=== PATIENT | female | born 1940 | race Caucasian/White ===

== ENCOUNTER 2018-08-05 13:42 | Outpatient (CLI) | payer MEDICARE, BC ==
--- NOTE | 2018-08-06 01:00 | Consultation ---
DATE OF CONSULTATION: 08/05/2018 GASTROENTEROLOGY CONSULTATION CONSULTING PHYSICIAN: Jose Yu M.D. REFERRING PHYSICIAN: Koko Pineda M.D. CHIEF COMPLAINT: Abdominal pain, bloating, and history of IBD/IBS. HISTORY OF PRESENT ILLNESS: This is a 77-year-old female with diagnosis of lung cancer, currently on oral chemotherapy. Apparently, when she takes the chemotherapy, for one day she has severe diarrhea for which she takes [id number] antidiarrheal medication. Then she will have a cycle of severe constipation for which she takes stool softeners. Apparently, she has a diagnosis of IBD for which she was on Apriso, but about a year ago, she has been off of those medications because of her chemotherapy. Apparently, she has no symptoms of flare-up of IBD. She had a CT scan done at [facility], which showed colonic wall thickening and concerning. So, the patient was referred to us for colonoscopy. PAST MEDICAL HISTORY: 1. IBS/IBD. 2. Lung cancer. 3. Thyroid disease. PAST SURGICAL HISTORY: See above. MEDICATIONS: She is on Tagrisso and thyroid medication. ALLERGIES: Sulfa. FAMILY HISTORY: Father had liver disease. SOCIAL HISTORY: The patient denies any alcohol usage. She used to be a smoker. Denies any drug use. REVIEW OF SYSTEMS: A 10-point review of systems was performed and pertinent positive in HPI. PHYSICAL EXAMINATION: VITAL SIGNS: Temperature 97.6, blood pressure is 119/75, pulse 86, and respirations 20. HEENT: Normocephalic and atraumatic. Sclerae anicteric. NECK: Supple. No evidence of lymphadenopathy. CARDIOVASCULAR: Regular rate and rhythm. Plus S1 and S2. No obvious murmur. LUNGS: Clear to auscultation bilaterally. ABDOMEN: Soft. Bowel sounds are present. Abdomen is mildly distended. Mildly tympanic to percussion. No rebound. No guarding. No peritoneal sign. EXTREMITIES: No cyanosis, no clubbing, no edema. ASSESSMENT AND PLAN: A very pleasant 77-year-old female with numerous medical problems as dictated above. Currently, on oral chemotherapy for lung cancer. History of IBD. Had a colonic wall thickening on the CT and stool OB positive at another facility. The patient was referred to us for colonoscopy. The patient agreed to colonoscopy. The patient was given a sample for cleansing prep and she was scheduled for next week to have a colonoscopy. She was also given a sample of VSL #3 probiotics and a prescription for this. I want to thank, Dr. Caceres, for this kind referral. Jose Heber Yu DR: APOLINAR JOB#: [id number] CC: Koko Pineda M.D. MTDGeorge
== END 2018-08-05 15:51 | disposition home or self-care (01) ==
LOC: PAN 13:42
DX: R10.9 Unspecified abdominal pain (principal); R14.0 Abdominal distension (gaseous); E07.9 Disorder of thyroid, unspecified; Z85.118 Personal history of other malignant neoplasm of bronchus and lung; Z88.2 Allergy status to sulfonamides
CPT/HCPCS: 99202

== ENCOUNTER 2018-08-09 10:27 | Day surgery (SDC) | payer MEDICARE, BC ==
[~2018-08-09] VITALS: Ht 161.3 cm; Wt 54.4 kg
[2018-08-09] VITALS (14 sets, daily range): BP systolic 119–170; BP diastolic 61–92
--- NOTE | 2018-08-09 11:24 | Short Stay Surgery H&P ---
History of Present Illness History of Present Illness Chief Complaint see recent office note HPI Brenda Loya is a 77 year old female who was admitted on for Colitis Patient History Allergies: Coded Allergies: ACETAMINOPHEN (Verified Allergy, Severe, rash; hallucination, 08/09/18) SCOPOLAMINE (Verified Allergy, Severe, rash; hallucination, 08/09/18) SULFA (SULFONAMIDE ANTIBIOTICS) (Verified Allergy, Severe, rash ; hallicination, 08/09/18) CODEINE (Verified Adverse Reaction, Intermediate, vomiting, 08/09/18) Plan Attestation Are the patient's medical conditions optimized for surgery? Jose Yu MD Aug 09, 2018 11:24
--- NOTE | 2018-08-09 11:25 | Pre-Procedure Note/Attestation ---
Pre-Procedure Note/Attestation Complete Prior to Procedure Planned Procedure: not applicable Procedure Narrative: esophagogastroduodenoscopy and colonoscopy Indications for Procedure Pre-Operative Diagnosis: colitis, anemia Attestation I attest that I discussed the nature of the procedure; its benefits; risks and complications; and alternatives (and the risks and benefits of such alternatives ), prior to the procedure, with the patient (or the patient's legal food service sales representatives). I attest that, if there was a reasonable possibility of needing a blood transfusion, the patient (or the patient's legal food service sales representatives) was given the [facility] standardized written summary, pursuant to the [place] Blood Safety Act ([place] Health and Safety Code # 1645, as amended). I attest that I re-evaluated the patient just prior to the surgery and that there has been no change in the patient's H&P, except as documented below: Jose Yu MD Aug 09, 2018 11:25
[2018-08-09] MEDS ORDERED: Propofol 200mg/20ml IV ONE (11:30)
[2018-08-09] MEDS ORDERED: LR 1000ml ONE (11:30)
[2018-08-09] MEDS ORDERED: fentaNYL 100 mcg/2 mL IV ONE (11:30)
[2018-08-09] MEDS ORDERED: TAGRISSO40 MG PO (11:31)
[2018-08-09] MEDS ORDERED: SYNTHROID112 MCG ORAL (11:32)
[2018-08-09] MEDS ORDERED: COMBIGAN EYE DRO5 ML OP (11:33)
[2018-08-09] MEDS ORDERED: LUMIGAN2.5 ML BOTH EYES (11:34)
[2018-08-09] MEDS ORDERED: PROLIA60 MG/1 ML SUBQ (11:35)
[2018-08-09] MEDS ORDERED: TRAMADOL HCL50 MG ORAL (11:37)
[2018-08-09] MEDS ORDERED: MULTIVITAMINS1 EAC2 ORAL (11:38)
[2018-08-09] MEDS ORDERED: CALCIUM + VITA1 EAC1 PO (11:39)
[2018-08-09] MEDS ORDERED: TURMERIC 500 M1 EAC1 PO (11:41)
[2018-08-09] MEDS ORDERED: LR 1000ml 1,000 ML IVLG SCH (12:25)
--- NOTE | 2018-08-09 12:25 | Anethesia Preoperative Eval ---
Anesthesia Pre-op PMH/ROS General Date of Evaluation: Aug 09, 2018 Time of Evaluation: 11:55 Anesthesiologist: Trista ASA Score: ASA 3 Mallampati Score Class I : Soft palate, uvula, fauces, pillars visible Class II: Soft palate, uvula, fauces visible Class III: Soft palate, base of uvula visible Class IV: Only hard plate visible Mallampati Classification: Class II Surgeon: Aimee Diagnosis: Abdominal pain Surgical Procedure: Colonoscopy Anesthesia History: none Social History: smoking - h/o Family History: no anesthesia problems Allergies: Coded Allergies: ACETAMINOPHEN (Verified Allergy, Severe, rash; hallucination, 08/09/18) SCOPOLAMINE (Verified Allergy, Severe, rash; hallucination, 08/09/18) SULFA (SULFONAMIDE ANTIBIOTICS) (Verified Allergy, Severe, rash ; hallicination, 08/09/18) CODEINE (Verified Adverse Reaction, Intermediate, vomiting, 08/09/18) Medications: see eMAR Patient NPO?: Yes Past Medical History Cardiovascular: Reports: HTN - mild; Denies: CAD, [place], valve dz, arrhythmia, other Pulmonary: Reports: other - lung CA s/pR lobectomy; Denies: asthma, COPD, KRISTIN Gastrointestinal/Genitourinary: Reports: GERD, other - chroni abdominal pain Neurologic/Psychiatric: Reports: depression/anxiety; Denies: dementia, CVA, TIA, other Endocrine: Reports: hypothyroidism; Denies: DM, steroids, other HEENT: Denies: cataract (L), cataract (R), glaucoma, [place] (L), [place] (R), other Hematology/Immune: Reports: anemia; Denies: DVT, bleeding disorder, other Musculoskeletal/Integumentary: Reports: OA; Denies: RA, DJD, DDD, edema, other Other: other - malnourished PMH Narrative: as above PSxH Narrative: R lobectomy Anesthesia Pre-op Phys. Exam Physician Exam Last Vital Signs Date Time Temp Pulse Resp B/P (MAP) Pulse Ox O2 Delivery O2 Flow Rate FiO2 08/09/18 11:42 Room Air 08/09/18 11:28 97.1 59 20 119/73 99 Constitutional: NAD Neurologic: CN 2-12 intact Cardiovascular: RRR, no M/R/G Respiratory: CTA Gastrointestinal: S/NT/ND Airway Exam Mallampati Score: Class III MO: limited Neck: stiff Teeth: missing Dentures: no upper, no lower Anesthesia Pre-op A/P Risk Assessment & Plan Assessment: ASA 3 Plan: MAC Status Change Before Surgery: Gama Bowling MD Aug 09, 2018 12:25
--- NOTE | 2018-08-09 12:26 | Endoscopy Procedure Note ---
Endoscopy Procedure Note General Indication for Procedure: colitis Procedures Performed: colonoscopy Operative Findings/Diagnosis: colonic stricture Specimen: yes Pt Tolerated Procedure Well: Yes Estimated Blood Loss: none Anesthesia Anesthesiologist: jessica Anesthesia: MAC Inserted Devices Implant(s) used?: No Quality Quality of Bowel Preparation: Fair Did scope reach the cecum?: No Why scope didn't reach cecum: Severe colitis Was there any complications?: No GI Core Measures 50 yrs or older w/o bx or poly: No 10yrs. F/U not recommended: Yes If not recommended, why?: Above average risk 10 yrs. F/U needed: Yes 18 years or older w/prev. colo: Yes <3yrs. since last colonoscopy: No Jose Yu MD Aug 09, 2018 12:26
--- NOTE | 2018-08-09 12:47 | Immediate Post-Op Evaluation ---
Immediate Post-Op Evalulation Immediate Post-Op Evalulation Procedure: Colonoscopy Date of Evaluation: Aug 09, 2018 Time of Evaluation: 12:46 IV Fluids: 500 Blood Products: none Estimated Blood Loss: none Urinary Output: none Blood Pressure Systolic: 129 Blood Pressure Diastolic: 72 Pulse Rate: 62 Respiratory Rate: 20 O2 Sat by Pulse Oximetry: 99 Temperature (Fahrenheit): 98.0 Pain Score (1-10): 1 Nausea: No Vomiting: No Complications none Patient Status: reacts, patent, none Hydration Status: adequate Gama Weston MD Aug 09, 2018 12:47
--- NOTE | 2018-08-09 13:25 | NUR ---
PATIENT C/O PAIN AT LEVEL 8 VERY UNCOMFORTABLE CLAIMED . STILL NOT PASSING AIR ABDOMEN FIRM AND DISTENDED . POSITION CHANGED . AL CALLED MADE AWARE WILL NOTIFY DR MCKOY CLAIMED
--- NOTE | 2018-08-09 13:59 | NUR ---
PT C/O LEFT EYE REDNESS AND PAIN DIFFICULT TO OPEN LEFT EYE . PT STATES PAIN STARTED 10 MIN PRIOR TO GOING TO SURGERY. STATES SHE HAS PROBLEMS WITH DRYNESS TO HER EYES. USES EYE REFRESH [ PTS OWN MEDS] FOR MOISTURE. 2 GTTS OF EYE REFRESH TO LEFT EYE AND 1 DROP TO RT EYE GIVEN REQUESTED . AL MADE AWARE .
--- NOTE | 2018-08-09 14:10 | NUR ---
AMBULATE TO BATHROOM . PASS MORE AIR AND FECAL MATTER . VOIDED . BACK IN BED AFTER . KUB DONE AT BEDSIDE Addendum: 08/09/18 at 1420 by XU CARMONA RN Amended: Links added.
--- NOTE | 2018-08-09 14:45 | NUR ---
DR MCKOY MADE AWARE BY AL RE CXR AND KUB RESULTS . PT FEELS BETTER ABDOMEN SOFTER BS HEARD AND MOVING PT CONTINUE TO PASS AIR. DR MCKOY MADE AWARE OF C/O LEFT EYE PAIN , REDNESS, AND DIFFICULTY TO OPEN EYE ALSO FEELS THAT THERE IS SOMETHING IN THERE . PT STATES THOUGH THAT IT HAS HAPPENED TO HER BEFORE AND WANTED HER EYE MEDS TO TAKE. EXPLAINED TO PT WE CANT GIVE MORE MEDS WITHOUT BEING SEEN BY EYE DOCTOR. DR MCKOY WANTS ER DOCTOR TO EVALUATE EYE PRIOR TO D/C
--- NOTE | 2018-08-09 15:00 | Diagnostic Imaging Report ---
Indication: Abdominal pain, status post endoscopy Technique: One view of the chest Comparison: none Findings: Lungs and pleural spaces are clear. The aorta is tortuous. Considerable gas is seen in the colon. There is no evidence of free air under the diaphragm Impression: No acute process
--- NOTE | 2018-08-09 15:00 | NUR ---
NGUYEN INJURY/SAFETY HAZARD ASSESSMENT CALLED RE PT EVALUATION OF HER EYE IN ER PRIOR TO DISCHARGE HOME POST COLONOSCOPY . SAYS OK TO TAKE PT TO ER TO EVALUATE
--- NOTE | 2018-08-09 15:01 | Diagnostic Imaging Report ---
Indication: Abdominal pain, status post endoscopy Technique: Supine view of the abdomen Comparison: none Findings: The transverse colon is upper limits of normal in caliber the colon is diffusely gas-filled. Prominent gas-filled small bowel loops are also demonstrated. No unusual masses or calcifications. Impression: Prominent gas-filled colon and distal small bowel, an expected finding related to air insufflation from endoscopy No definite acute process
--- NOTE | 2018-08-09 15:10 | NUR ---
SPOKE WITH YEN. SHE IS PT'S FRIEND AND WAS SUPPOSED TO COME FOR TAKING HER HOME. EXPLAINED THE SITUATION AND SHE UNDERSTOOD. ALSO SPOKE WITH JIN MUNOZ, PT'S DAUGHTER. EXPLAINED DELAYED DISCHARGE TO ABDOMINAL DISCOMFORT WITH X RAY EVALUATION DONE. EXPLAINED HER LEFT EYE OBSERVED WITH REDNESS, PAIN AND SWELLING AND DR MCKOY ORDERED FOR ER EVALUATION. SHE UNDERSTOOD AND AGREE THE PLAN.
--- NOTE | 2018-08-09 15:14 | NUR ---
DISCHARGE INSTRUCTION POST COLONOSCOPY GIVEN TO PATIENT UNDERSTOOD AND ACKNOWLEDGED. ASSIST PATIENT TO GET DRESSED BELONGINGS ACCOUNTED FOR SIGNED BY PT. DISCHARGE TO ER FULLY AWAKE AND ALERT IN WHEELCHAIR . AMBULATE WITH ASSIST FEELING BETTER WITH HER STOMACH PAIN AT LEVEL 4 AND CONT TO PASS AIR. LEFT EYE REMAINS RED , SL SWELLING AND PAINFUL . AL JACOBSON RN STILL HER AND SPOKE TO PTS DAUGHTER .
--- NOTE | 2018-08-09 18:15 | Procedure Note ---
DATE OF PROCEDURE: 08/09/2018 SURGEON: Jose Yu M.D. REFERRING PHYSICIAN: Dr. Pineda. PROCEDURE: Colonoscopy with biopsy. ANESTHESIA: Per Dr. Weston. INSTRUMENT: Olympus adult flexible colonoscope. INDICATION: Colitis. The procedure, risks, benefits, and possible consequences, including hemorrhage, aspiration, perforation and infection, and alternative treatments, were explained to the patient/legal guardian by Dr. Jose Yu and the patient/legal guardian understood and accepted these risks. PROCEDURE IN DETAIL: After informed consent was obtained and the patient was adequately sedated, first rectal exam was performed, which was positive for internal hemorrhoids. Then, the scope was advanced from the rectum into the area which seemed to be 60 cm from the anal verge, maybe transverse colon, where we encountered a stricture, tight, inflammatory-looking stricture. Multiple biopsies from this stricture were obtained. We did not want to push the scope through because of the risk of perforation and by the way, the quality of prep was fair. At this time, we decided to remove the colonoscope and try with the upper scope, which is a smaller scope. We got to the stricture area, but again, this could not be encountered with the scope being too short to get through this stricture. At this time, we tattooed the area of the stricture and we gradually removed the scope. SUMMARY OF FINDINGS: 1. Fair colonic prep. 2. Incomplete colonoscopy examination secondary to a stricture at 60 cm from the anal verge. 3. Colonic stricture, status post biopsy and tattooing. RECOMMENDATIONS: Follow pathology. If there is no evidence of malignancy depending on the biopsy, we are going to treat and hopefully reschedule for another colonoscopy on a different day. I want to thank Dr. Pineda for this kind referral. Jose Yu M.D. DR: APOLINAR JOB#: [id number] CC: Dr. Pineda
[2018-08-10 09:56] VITALS: BP 135/58
--- NOTE | 2018-08-10 09:56 | 48 Hour Post Anesthesia Eval ---
Post Anesthesia Evaluation Procedure: Colonoscopy Date of Evaluation: Aug 09, 2018 Time of Evaluation: 14:20 Blood Pressure Systolic: 135 0: 58 Pulse Rate: 72 Respiratory Rate: 20 Temperature (Fahrenheit): 97.5 O2 Sat by Pulse Oximetry: 98 Airway: patent Nausea: No Vomiting: No Pain Intensity: 2 Hydration Status: adequate Cardiopulmonary Status: stable Mental Status/LOC: patient returned to baseline Follow-up Care/Observations: n/a Post-Anesthesia Complications: none Follow-up care needed: ready to discharge Gama Weston MD Aug 10, 2018 09:56
--- NOTE | 2018-08-10 16:00 | Cardiology Report ---
APPROVED REPORT EKG Measurement Heart [id number] Normal sinus rhythm Normal ECG
== END 2018-08-09 15:20 | disposition home or self-care (01) ==
LOC: GAS 10:27
DX: K52.9 Noninfective gastroenteritis and colitis, unspecified (principal); K62.4 Stenosis of anus and rectum; I10 Essential (primary) hypertension; K21.9 Gastro-esophageal reflux disease without esophagitis; F41.9 Anxiety disorder, unspecified; F32.9 Major depressive disorder, single episode, unspecified; E03.9 Hypothyroidism, unspecified; M19.90 Unspecified osteoarthritis, unspecified site; D64.9 Anemia, unspecified; Z88.2 Allergy status to sulfonamides; Z88.6 Allergy status to analgesic agent; Z87.891 Personal history of nicotine dependence; Z85.118 Personal history of other malignant neoplasm of bronchus and lung
CPT/HCPCS: 45380; 45381; 71045; 74018; 93005; J2704; J3010; 94003; 94150

== ENCOUNTER 2018-08-09 15:22 | Emergency (ER) | payer MEDICARE, BC ==
[~2018-08-09] VITALS: Ht 160 cm; Wt 54.4 kg
[~2018-08-09 15:22] MED LIST: CALCIUM + VITA1 EAC1 PO; COMBIGAN EYE DRO5 ML OP; LUMIGAN2.5 ML BOTH EYES; MULTIVITAMINS1 EAC2 ORAL; PROLIA60 MG/1 ML SUBQ; SYNTHROID112 MCG ORAL; TAGRISSO40 MG PO; TRAMADOL HCL50 MG ORAL; TURMERIC 500 M1 EAC1 PO
--- NOTE | 2018-08-09 15:39 | NUR ---
Note kyrstian in EDM - 08/09/18 at 1545 by JOSE ED Nurse Note: PT BROUGHT IN FROM [facility] TODAY POST-COLONSCOPY. AOX4. PER PT, PT WAS SENT TO ER DUE TO LEFT SIDED OCULAR PAIN, 01/20, POST COLONSCOPY. PT STATES SHE WAS SENT TO ER TO GET PERMISSION FOR EYE DROP ADMINISTRATION. PER DR DELGADO, PT OKAY TO RECEIVE KETOROLAC GTT OS. EYEDROP ADMINISTERED.
--- NOTE | 2018-08-09 15:39 | NUR ---
ED Nurse Note: PT BROUGHT IN FROM [facility] TODAY POST-COLONSCOPY. AOX4. PER PT, PT WAS SENT TO ER DUE TO LEFT SIDED OCULAR PAIN, 10, POST COLONSCOPY. PT STATES SHE WAS SENT TO ER TO GET PERMISSION FOR EYE DROP ADMINISTRATION. PER DR DELGADO, PT OKAY TO RECEIVE KETOROLAC GTT OS. EYEDROP ADMINISTERED. ON ASSESSMENT, LEFT EYE APPEARS RED AND SWOLLEN BUT NO DRAINAGE NOTED.
[2018-08-09 15:42] VITALS: BP 168/60
[2018-08-09 16:35] VITALS: BP 154/64
--- NOTE | 2018-08-09 16:37 | NUR ---
ED Nurse Note: PT LAYING PEACEFULLY IN BED IN NAD. AOX4. DAUGHTER AT BEDSIDE. DISCHARGE PAPERWORK EXPLAINED TO PT. PT AND DAUGHTER VERBALIZE UNDERSTANDING AND ALL QUESTIONS ANSWERED. DISCHARGE PAPERWORK GIVEN TO PT, IV AND ID WRISTBAND REMOVED. PT WALKED OUT OF ER WITH STEADY GAIT AND ALL BELONGINGS.
--- NOTE | 2018-08-09 19:49 | Emergency Room Report ---
History of Present Illness General Chief Complaint: Eye Problems Source: Patient Present Illness HPI Patient presents with complaints of left eye discomfort Patient was at GI lab Had a colonoscopy patient has diagnosis of cancer patient after colonoscopy Had reported some discomfort to the left eye Patient was apparently not able to take her prescription drops that she had with her and was instead sent to the emergency room Here the patient reports that a prescription drops that she has with her has been helping her pain in that side Denies any nausea vomiting Allergies: Coded Allergies: ACETAMINOPHEN (Verified Allergy, Severe, rash; hallucination, 08/09/18) SCOPOLAMINE (Verified Allergy, Severe, rash; hallucination, 08/09/18) SULFA (SULFONAMIDE ANTIBIOTICS) (Verified Allergy, Severe, rash ; hallicination, 08/09/18) CODEINE (Verified Adverse Reaction, Intermediate, vomiting, 08/09/18) Patient History Past Medical History: see triage record Pertinent Family History: none Reviewed Nursing Documentation: PMH: Agreed; PSxH: Agreed Nursing Documentation-PMH Past Medical History: No History, Except For Hx Cardiac Problems: No Hx Cancer: Yes Hx Gastrointestinal Problems: Yes Hx Neurological Problems: No Review of Systems All Other Systems: negative except mentioned in HPI Physical Exam Vital Signs Date Time Temp Pulse Resp B/P (MAP) Pulse Ox O2 Delivery O2 Flow Rate FiO2 08/09/18 15:25 97.2 168/60 Room Air 08/09/18 15:42 66 22 97 Sp02 EP Interpretation: reviewed, normal General Appearance: well appearing, no apparent distress Head: normocephalic, atraumatic Eyes: left eye other - Conjunctival erythema, There does appear to be some increased pressure ENT: normal pharynx, no angioedema Neck: supple Respiratory: lungs clear Cardiovascular #1: regular rate, rhythm Gastrointestinal: non tender, soft Musculoskeletal: normal inspection Neurologic: alert, oriented x3 Skin: normal color, no rash Lymphatic: no adenopathy Medical Decision Making Diagnostic Impression: Primary Impression: colonoscopy Additional Impression: glaucoma ER Course Patient is status post colonoscopy At this time has increased pain in the left eye, given the evaluation appearance there is concern for acute angle-closure glaucoma iritis and other pathology patient reports that she feels significantly better after placing her prescription drops Patient has multiple ophthalmology specialist at [facility] I have contacted daughter She is here she agrees that the left eye does not appear normal At this time I had a discussion with the patient and the daughter there would like to present to their ophthalmology specialist patient's daughter is on the phone with him contacting the office I feel that this is an appropriate disposition and patient was dispositioned to have outpatient ophthalmology follow-up Last Vital Signs Date Time Temp Pulse Resp B/P (MAP) Pulse Ox O2 Delivery O2 Flow Rate FiO2 08/09/18 16:35 97.6 68 20 154/64 98 Room Air Status: improved Disposition: HOME, SELF-CARE Condition: Stable Referrals: NOE MANLEY (PCP) Patient Instructions: Colonoscopy, Care After, [id number], Glaucoma, Easy-to- Read Additional Instructions: Patient is provided with the discharge instructions notified to follow up with primary doctor in the next 2-3 days otherwise return to the er with any worsening symptoms. Please note that this report is being documented using [employer] technology. This can lead to erroneous entry secondary to incorrect interpretation by the dictating instrument. Yao Giles DO Aug 09, 2018 19:49
== END 2018-08-09 16:38 | disposition home or self-care (01) ==
LOC: EMR 15:40
DX: H40.212 Acute angle-closure glaucoma, left eye (principal); Z85.89 Personal history of malignant neoplasm of other organs and systems; Z88.2 Allergy status to sulfonamides; Z88.6 Allergy status to analgesic agent; Z88.8 Allergy status to other drugs, medicaments and biological substances
CPT/HCPCS: 99282